=== PATIENT | female | born 1970 | race Two or more races ===

== ENCOUNTER → 2024-07-24 | Emergency (ER) | payer BC ==
[~2024-07-24] VITALS: Ht 162.6 cm; Wt 63.0 kg
[~2024-07-24] MED LIST: KETOROLAC TROMETHAMINE 30 MG VIAL IM STA; KETOROLAC TROMETHAMINE 30 MG VIAL ONE; ORPHENADRINE CITRATE 30 MG/ML AMPUL IM STA; ORPHENADRINE CITRATE 30 MG/ML AMPUL ONE
== END | disposition home or self-care (01) ==
LOC: ER 18:51
DX: M54.30 Sciatica, unspecified side (principal)